=== PATIENT | male | born 1940 | race Caucasian/White ===

== ENCOUNTER 2024-10-27 09:04 | Day surgery (SDC) | payer MEDICARE, BC ==
[~2024-10-27] VITALS: Ht 182.9 cm; Wt 108.8 kg
[~2024-10-27 09:04] MED LIST: ATOR40TA PO; DORZ10DR32 EACHEYE; FINA5TAB11 PO; HYDR50TA46 PO; LOSA-415 PO; LOSA100T58 PO; METO100T7 PO; METO200T37 PO; RIVA20TA PO
[2024-10-27 10:00] VITALS: BP 154/94; PULSE 68; RESP 16; TEMP 98.1; O2SAT 95
[2024-10-27 10:20] LABS: MEAN PLATELET VOLUME 8.4 FL (7.4-10.4); RED CELL DISTRIBUTION WIDTH 16.1 % (11.5-14.5)
[2024-10-27] MEDS ORDERED: fentaNYL/PF 50MCG/1 ML 2ML syringe IV ONE (10:20)
[2024-10-27] MEDS ORDERED: normal saline 1000ml 1,000 ML IV SCH (10:20)
[2024-10-27] MEDS ORDERED: MIDAZolam 1mg/ml 10ml vial IV ONE (10:20)
[2024-10-27] MEDS ORDERED: fentaNYL/PF 50MCG/1 ML 2ML syringe ONE (10:35)
[2024-10-27] MEDS ORDERED: midazolam 1 mg/ML 2ml injection ONE ×2 (10:35→10:36)
[2024-10-27] MEDS ORDERED: CLOP-32 PO (11:29)
[2024-10-27 11:30] VITALS: BP 106/76; PULSE 64; RESP 14; O2SAT 93
[2024-10-27] MEDS ORDERED: ASPI-1265 PO (11:30)
[2024-10-27 11:45] VITALS: BP 96/60; PULSE 62; RESP 13; O2SAT 93
[2024-10-27 12:00] VITALS: BP 95/64; PULSE 61; RESP 14; O2SAT 94
[2024-10-27 12:15] VITALS: BP 100/73; PULSE 58; RESP 15; O2SAT 94
--- NOTE | 2024-10-29 13:15 | CARDIOLOGY REPORT ---
APPROVED REPORT EXAM: Limted transesophageal echocardiogram with color flow Doppler. Patient Location: [facility] Blood Pressure: 163/89 mmHg Heart Rate: 65 bpm Rhythm: Atrial Fibrillation Indications 1 MONTH POST WATCHMAN FLX MATTHEW CLOSURE DEVICE IMPLANTATION FOLLOW UP EVALUATE DEVICE FOR THROMBUS, POSITION, AND SEAL 31 mm WATCHMAN FLX MATTHEW CLOSURE DEVICE SERGIO probe passed by Yana Schofield MD [facility] Room is Yana Schofield MD Previous echo 09/16/24 70-75% ; Intact interatrial septum with tiny L to R shunt s/p transseptal punct ure by color and spectral Doppler. LEFT VENTRICLE LV appears normal in size with moderate concentric hypertrophy. Overall systolic function appears nor mal. Overall LVEF is 60-65%. RIGHT VENTRICLE RV appears mildly dilated with normal contractility. ATRIA LA is severly dilated. Iintact interatrial septum with no appreciable L to R shunt s/p transseptal pu ncture. Left upper pulmonary vein identified. Successfully occluded left atrial appendage with well v isualized Watchman device well positioned without thrombus. No residual flow detected around device i n all views. Right atrium is severely dilated. PERICARDIUM There is no pericardial effusion. CONCLUSION Overall LVEF is 60-65%. LV appears normal in size with moderate concentric hypertrophy. Overall systo lic function appears normal. RV appears mildly dilated with normal contractility. LA is severly dilat ed. Iintact interatrial septum with no appreciable L to R shunt s/p transseptal puncture. Left upper pulmonary vein identified. Successfully occluded left atrial appendage with well visualized Watchman device well positioned without thrombus. No residual flow detected around device in all views. There is no pericardial effusion. Conclusion Overall LVEF is 60-65%. LV appears normal in size with moderate concentric hypertrophy. Overall systolic function appears nor mal. RV appears mildly dilated with normal contractility. LA is severly dilated. Iintact interatrial septum with no appreciable L to R shunt s/p transseptal pu ncture. Left upper pulmonary vein identified. Successfully occluded left atrial appendage with well visualized Watchman device well positioned without thrombus. No residual flow detected around device in all views. There is no pericardial effusion.
== END 2024-10-27 12:35 | disposition home or self-care (01) ==
LOC: SSTAY O 09:04
PROVIDERS: ATTEND Student in an Organized Health Care Education/Training Program
DX: I48.91 Unspecified atrial fibrillation (principal); I10 Essential (primary) hypertension; G47.33 Obstructive sleep apnea (adult) (pediatric); Z79.899 Other long term (current) drug therapy; Z98.890 Other specified postprocedural states
CPT/HCPCS: 36415; 85025; 93312; 93325; A4620; J2250; J3010; J7030; 93308; 99152; 99153

== ENCOUNTER 2024-11-08 13:26 | Outpatient (CLI) | payer MEDICARE, BC ==
[~2024-11-08 13:26] MED LIST changes: +ASPI-1265 PO; +CLOP-32 PO; -LOSA-415 PO; -METO100T7 PO
[2024-11-08 14:52] LABS: MEAN PLATELET VOLUME 8.0 FL (7.4-10.4); PRE OP HEMATOCRIT 47.2 % (42.0-52.0); PRE OP HEMOGLOBIN 15.8 g/dL (14.0-17.9); PRE OP PLATELET COUNT 155 X10'3 (140-440); PRE OP WHITE BLOOD COUNT 6.4 10'3 (4.8-10.8); RED CELL DISTRIBUTION WIDTH 15.9 % (11.5-14.5)
[2024-11-08 15:14] LABS: CREATININE 1.22 MG/DL (0.60-1.10); PRE OP ALT 21 U/L (30-65); PRE OP ANION GAP 9 (8-16); PRE OP AST 21 U/L (10-37); PRE OP BILIRUB, TOTAL 1.6 MG/DL (0.0-1.0); PRE OP GLUCOSE 120 MG/DL (70-104); PRE OP POTASSIUM 3.9 MMOL/L (3.4-5.1); PRE OP SODIUM 141 MMOL/L (135-145); TOTAL CARBON DIOXIDE 30.1 MMOL/L (24-32); eGFR 57 ML/MIN
== END 2024-11-08 23:59 | disposition home or self-care (01) ==
LOC: LAB 13:26 → EDSTATUS 11-15 10:15
PROVIDERS: ATTEND Surgery
DX: Z01.812 Encounter for preprocedural laboratory examination (principal); K40.90 Unilateral inguinal hernia, without obstruction or gangrene, not specified as recurrent
CPT/HCPCS: 36415; 80053; 85025